=== PATIENT | male | born 1965 | race Two or more races ===

== ENCOUNTER 2024-12-01 08:25 | Day surgery (SDC) | payer MEDICARE, SELFPAY ==
[2024-11-28 15:05] VITALS: BMI 36.6
[2024-12-01] VITALS (11 sets, daily range): BP systolic 114–150; BP diastolic 84–104; PULSE 74–97; RESP 13–29; TEMP 36.1–36.7; O2SAT 93–99; BMI 36.6
[2024-12-01] MEDS: BENZOCAINE 20% (Hurricaine) SPRAY 1 DOSE TOP (10:22)
[2024-12-01] MEDS: MIDAZOLAM INJ 1 MG/ML VIAL 2 ML (ASD USE ONLY) 2 MG IVP (10:22)
[2024-12-01] MEDS: fentaNYL CIT INJ 50 mCg/ML AMP 2ML (ASD USE ONLY) IVP (10:22)
[2024-12-01] MEDS: SODIUM CHLORIDE 0.9% 500 ML 500 ML 20 ML IV (10:23)
== END 2024-12-01 11:15 | disposition home or self-care (01) ==
PROVIDERS: Referring Provider Specialist; Visit Provider Specialist
PROC: 0DBE8ZX Excision of Large Intestine, Via Natural or Artificial Opening Endoscopic, Diagnostic (ICD-10-PCS; CPT 45380; principal; 2024-12-01 11:15)
PROC: (CPT 43239; 2024-12-01 11:15)
DX: K64.1 Second degree hemorrhoids (principal); R19.4 Change in bowel habit; R10.30 Lower abdominal pain, unspecified; R94.5 Abnormal results of liver function studies; E78.5 Hyperlipidemia, unspecified; Z79.899 Other long term (current) drug therapy; I48.20 Chronic atrial fibrillation, unspecified; Z79.01 Long term (current) use of anticoagulants; I50.9 Heart failure, unspecified; N40.0 Benign prostatic hyperplasia without lower urinary tract symptoms
CPT/HCPCS: 45378; A4217; A4649; J1200; J2250; J3010; J7999; A9270

== ENCOUNTER → 2024-12-18 | Outpatient (CLI) | payer MEDICARE, SELFPAY ==
[2024-12-18 15:24] LABS: INR 1.1 (0.9-1.3); Prothrombin Time 11.9 Seconds (9.0-12.2)
[2024-12-18 15:30] LABS: Alanine Aminotransferase 52 U/L (10-49); Albumin, Serum 4.5 gm/dL (3.5-5.0); Alkaline Phosphatase 147 U/L (46-116); Aspartate Amino Transferase 28 U/L (0-34); Bilirubin,Direct 0.3 mg/dL (0.0-0.3); Bilirubin,Total 0.6 mg/dL (0.3-1.2); Total Protein 7.1 gm/dL (5.7-8.2)
[2024-12-18 15:31] LABS: Ferritin 86 ng/mL (10.5-307.3); Iron 67 mcg/dL (65-175); Percent Iron Saturation 17 % (20-55); Total Iron Binding Capacity 378 mcg/dL (250-425); Unsaturated Iron Binding 311 (225-295)
[2024-12-18 16:08] LABS: AFP Non-Pregnant 1.80 ng/mL (<8.10); Hepatitis A Antibody IgM Non Reactive (Non React); Hepatitis B Core Antibody IgM Non Reactive (Non React); Hepatitis B Surface Antigen Non Reactive (Non React); Hepatitis C Antibody Non Reactive (Non React)
[2024-12-23 06:29] LABS: ACTH, Plasma* 46 pg/mL (6-50)
[2024-12-26 06:42] LABS: ANA Screen, IFA NEGATIVE (NEGATIVE); Alpha-1-Antitrypsin* 148 mg/dL (83-199); Ceruloplasmin* 30 mg/dL (14-30); Copper* 133 mcg/dL (70-175); Mitochondrial Ab NEGATIVE (NEGATIVE)
== END | disposition home or self-care (01) ==
LOC: COPL 14:04
PROVIDERS: PCP Family Medicine; Referring Provider Specialist; Visit Provider Specialist
DX: R19.4 Change in bowel habit (principal); R14.0 Abdominal distension (gaseous); R11.0 Nausea; K30 Functional dyspepsia; K25.9 Gastric ulcer, unspecified as acute or chronic, without hemorrhage or perforation
CPT/HCPCS: 36415; 80074; 80076; 82024; 82103; 82105; 82390; 82525; 82728; 83540; 83550; 85610; 86038; 86255

== ENCOUNTER → 2024-12-25 | Outpatient (CLI) | payer OTHER, SELFPAY ==
--- NOTE | 2024-12-25 10:30 | XR_ITS ---
Examination: Abdomen sonogram, Limited Date and time of exam: December 25, 2024, 1102 hours INDICATIONS: Abdominal distention beginning 3 months ago Technique: Real-time echavarria scale transabdominal sonographic images of the upper abdomen obtained. Findings: Absent gallbladder Normal common bile duct 0.5 cm Pancreatic head 2.4 cm Liver 17.7 cm fatty infiltration lobular contour Left lobe hyperechoic mass 18 x 12 x 24 mm Normal hepatopetal portal venous flow Patent IVC IMPRESSION: Left lobe 18 x 12 x 24 mm hyperechoic lesion, recommend CT abdomen pre and postcontrast for further assessment of this liver lesion
== END | disposition home or self-care (01) ==
LOC: CDIM 10:34
PROVIDERS: PCP Family Medicine; Referring Provider Specialist; Visit Provider Specialist
DX: K76.9 Liver disease, unspecified (principal)
CPT/HCPCS: 76705

== ENCOUNTER → 2025-03-04 | Outpatient (CLI) | payer OTHER, SELFPAY ==
--- NOTE | 2025-03-04 10:00 | XR_ITS ---
Examination: CT abdomen, without intravenous contrast. CT pelvis, without intravenous contrast. CT abdomen, with intravenous contrast. CT pelvis, with intravenous contrast. 2-D sagittal coronal reconstructions. Date and time of exam: March 04, 2025, 1029 hours INDICATIONS: Left lobe liver lesion 18 x 12 x 24 mm Ultrasound liver December 25, 2024 CTDI: vol (mGy) 11 DLP: (mGycm) 709 Technique: Multiple 3.0 axial images of the abdomen and pelvis without intravenous contrast, 3.0 mm slice thickness. Multiple 3.0 postcontrast images abdomen and pelvis also obtained, post intravenous injection 60 cc [id number] 2D sagittal coronal reconstructions Low dose protocols, automated exposure control, adjustment MA KV according to patient size FINDINGS: 19 mm solid right lobe liver lesion image 73 No biliary tract dilatation Absent gallbladder Splenomegaly AP dimension 14 cm No pancreatic or adrenal mass No renal or ureteral calculi, no hydronephrosis Aorta normal size Normal appendix No bowel obstruction or diverticulitis Normal seminal vesicles No significant prostatomegaly No bladder mass Mild osteopenia Mild narrowing hip joints IMPRESSION: 19 mm solid right lobe liver lesion, recommend MRI abdomen liver follow-up pre and postcontrast Mild splenomegaly Normal appendix No bowel obstruction diverticulitis or nonspecific colitis pattern
== END | disposition home or self-care (01) ==
PROVIDERS: PCP Family Medicine; Referring Provider Specialist; Visit Provider Specialist
DX: K76.89 Other specified diseases of liver (principal); R16.1 Splenomegaly, not elsewhere classified
CPT/HCPCS: 74178; A4649; Q9967